=== PATIENT | female | born 1980 | race Caucasian/White ===

== ENCOUNTER 2019-05-22 20:04 | Inpatient (IN) | payer OTHER ==
[~2019-05-22] VITALS: Ht 165.1 cm; Wt 147.3 kg
[2019-05-22] MEDS ORDERED: OMEP40CA97 PO (20:22)
[2019-05-22] MEDS ORDERED: ARIP1TAB4 PO (20:22)
[2019-05-22 20:57] LABS: HEMATOCRIT 40.7 % (36.0-47.0); HEMOGLOBIN 12.3 g/dl (12.0-15.5); MEAN CORPUSCULAR HEMOGLOBIN 23.4 pg (27.0-33.0); MEAN CORPUSCULAR HGB CONC 30.2 g/dl (32.0-36.5); MEAN CORPUSCULAR VOLUME 77.5 fl (80.0-96.0); PLATELET COUNT, AUTOMATED 312 10^3/uL (150-450); RED BLOOD COUNT 5.25 10^6/uL (4.00-5.40); WHITE BLOOD COUNT 10.8 10^3/uL (4.0-10.0)
[2019-05-22 21:18] LABS: HCG, SERUM QUALITATIVE NEGATIVE (NEGATIVE)
[2019-05-22 21:21] LABS: AMPHETAMINES LEVEL URINE NEGATIVE (NEGATIVE); BARBITURATES URINE NEGATIVE (NEGATIVE); BENZODIAZEPINES URINE NEGATIVE (NEGATIVE); CANNABINOIDS URINE NEGATIVE (NEGATIVE); COCAINE METABOLITE URINE NEGATIVE (NEGATIVE); METHADONE URINE NEGATIVE (NEGATIVE); OPIATES URINE NEGATIVE (NEGATIVE); PHENCYCLIDINE URINE NEGATIVE (NEGATIVE)
[2019-05-22 21:30] LABS: ACETAMINOPHEN LEVEL < 2.0 UG/ML (10.0-30.0); ALBUMIN 3.7 GM/DL (3.2-5.2); ALT/SGPT 19 U/L (12-78); BILIRUBIN,DIRECT 0.2 MG/DL (0.0-0.2); BILIRUBIN,TOTAL 0.6 MG/DL (0.2-1.0); BLOOD UREA NITROGEN 10 MG/DL (7-18); CALCIUM LEVEL 8.9 MG/DL (8.5-10.1); CARBON DIOXIDE LEVEL 27 MEQ/L (21-32); CHLORIDE LEVEL 104 MEQ/L (98-107); CREATININE FOR GFR 0.78 MG/DL (0.55-1.30); ETHYL ALCOHOL (ETHANOL) < 0.003 % (0.000-0.010); GLOMERULAR FILTRATION RATE > 60.0 (>60); GLUCOSE, FASTING 108 MG/DL (70-100); POTASSIUM SERUM 3.9 MEQ/L (3.5-5.1); SALICYLATE LEVEL < 1.7 MG/DL (5.0-30.0); SODIUM LEVEL 137 MEQ/L (136-145)
[2019-05-22] MEDS ORDERED: MOM 30ML SUSPENSION UDC PO PRN (22:45)
[2019-05-22] MEDS ORDERED: MAALOX 30 ML SUSP *UDC PO PRN (22:45)
[2019-05-22] MEDS ORDERED: traZODone 50 MG TAB PO PRN (22:45)
[2019-05-22] MEDS ORDERED: ACETAMINOPHEN TAB 650MG DOSE (2X325MG) PO PRN (22:45)
[2019-05-22] MEDS ORDERED: ROPI1TAB3 PO (23:06)
[2019-05-23] MEDS: rOPINIRole 2MG TAB PO SCH ×2 (01:20→08:48)
[2019-05-23] MEDS: OMEPRAZOLE 20 MG CAP PO SCH ×2 (01:20→08:48)
[2019-05-23 01:43] VITALS: BP 128/75
[2019-05-23 05:59] VITALS: BP 129/87
[2019-05-23] MEDS: INFLUENZA QUADRIVALENT PF VACCINE 0.5ML SYRINGE (90686) IM ONE ×2 (08:49→08:54)
[2019-05-23 10:52] VITALS: BP 138/65
--- NOTE | 2019-05-23 11:21 | HPEPDOC ---
General Date of Admission May 22, 2019 at 22:34 Date of Service: May 23, 2019 Chief Complaint The patient is a 38-year-old female admitted with a reason for visit of MHE. Source: Patient Exam Limitations: No limitations History of Present Illness 38 year old female PMHx GERD, DM (diet controlled), restless leg syndrome admitted to mental unit. Denies fever/chills, N/V/D, chest pain/pressure, abdominal pain, urinary complaints. Home Medications Scheduled Omeprazole (Omeprazole) 40 Mg Capsule.dr, 40 MG PO BID, (Reported) Ropinirole HCl (Ropinirole HCl) 1 Mg Tablet, 2 MG PO BID, (Reported) Allergies Coded Allergies: tobramycin (Unverified Allergy, Unknown, 05/22/19) oxycodone (Verified Adverse Reaction, Mild, shakes, 05/22/19) Past Medical History Medical History GERD, obesity, DM, restless leg syndrome Surgical History as above A-FIB/CHADSVASC A-FIB History Current/History of A-Fib/PAF?: No Review of Systems Constitutional: Denies: Chills, Fever, Night Sweats Eyes: Denies: Pain, Vision change ENT: Denies: Head Aches, Ear Pain, Dysphagia Skin: Denies: Rash, Lesions, Breakdown Pulmonary: Denies: Dyspnea, Cough Cardiovascular: Denies: Chest Pain, Palpitations, Orthopnea, Paroxysmal Noc. Dyspnea, Lt Headedness Gastrointestinal: Denies: Nausea, Vomiting, Abdominal Pain, Diarrhea Genitourinary: Denies: Dysuria, Frequency, Incontinence, Retention Hematologic: Denies: Bruising, Bleeding Excessively Musculoskeletal: Denies: Neck Pain, Back Pain, Joint Pain, Muscle Pain, Spasms Neurological: Denies: Weakness, Numbness, Change in speech, Confusion Psych: Reports: Mood Normal; Denies: Depression, Memory Issues Physical Examination General Exam: Positive: Alert, No Acute Distress Eye Exam: Positive: PERRLA, Conjunctiva & lids normal, EOMI; Negative: Sclera icteric ENT Exam: Positive: Atraumatic, Mucous membr. moist/pink, Pharynx Normal Neck Exam: Positive: Supple; Negative: JVD, thyromegaly Chest Exam: Positive: Clear to auscultation, Normal air movement Heart Exam: Positive: Rate Normal, Regular Rhythm, Normal S1, Normal S2; Negative: Murmurs, Rubs Telemetry: Positive: No significant arrhythmia Abdomen Exam: Positive: Normal bowel sounds, Soft; Negative: Tenderness, Hepatospenomegaly Extremity Exam: Positive: Normal pulses; Negative: Clubbing, Cyanosis, Edema Skin Exam: Positive: Nl turgor and temperature; Negative: Breakdown, Lesion Neuro Exam: Positive: Normal Gait, Normal Speech, Cranial Nerves 3-12 NL, Reflexes 2+ Psych Exam: Positive: Mental status NL, Mood NL, Oriented x 3 Vital Signs Vital Signs Date Time Temp Pulse Resp B/P (MAP) Pulse Ox O2 Delivery O2 Flow Rate FiO2 05/23/19 10:52 98.2 71 14 138/65 (89) 96 Room Air Laboratory Data Labs 24H Laboratory Tests 2 05/22/19 20:20: Nucleated Red Blood Cells % (auto) 0.0, Anion Gap 6L, Glomerular Filtration Rate > 60.0, Calcium Level 8.9, Total Bilirubin 0.6, Direct Bilirubin 0.2, Aspartate Amino Transf (AST/SGOT) 11, Alanine Aminotransferase (ALT/SGPT) 19, Alkaline Phosphatase 69, Total Protein 8.0, Albumin 3.7, Albumin/Globulin Ratio 0.86L, Thyroid Stimulating Hormone (TSH) 1.630, Human Chorionic Gonadotropin, Qual NEGATIVE, Salicylates Level < 1.7L, Acetaminophen Level < 2.0L, Ethyl Alcohol Level < 0.003 05/22/19 20:23: Urine Opiates Screen NEGATIVE, Urine Methadone Screen NEGATIVE, Urine Barbiturates Screen NEGATIVE, Urine Phencyclidine Screen NEGATIVE, Urine Amphetamines Screen NEGATIVE, Urine Benzodiazepines Screen NEGATIVE, Urine Cocaine Metabolite Screen NEGATIVE, Urine Cannabinoids Screen NEGATIVE CBC/BMP Laboratory Tests 05/22/19 20:20 Assessment/Plan 1. DM - diet controlled, monitor. 2. GERD - continue omeprazole. 3. restless leg syndrome - continue requip. 4. ?suicide attempt - management as per psychiatry. Plan / VTE VTE Prophylaxis Ordered?: MIRZA Soto MD May 23, 2019 11:21
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
--- NOTE | 2019-05-23 12:02 | MHDSPDOC ---
[facility] Discharge Summary Discharge Summary DATE OF ADMISSION: May 22, 2019 at 22:34 DATE OF DISCHARGE: 05/23/19 please see h/p for same day d/c Vital Signs/I&Os Vital Signs Date Time Temp Pulse Resp B/P (MAP) Pulse Ox O2 Delivery O2 Flow Rate FiO2 05/23/19 10:52 98.2 71 14 138/65 (89) 96 Room Air Laboratory Data Labs 24H Laboratory Tests 2 05/22/19 20:20: Nucleated Red Blood Cells % (auto) 0.0, Anion Gap 6L, Glomerular Filtration Rate > 60.0, Calcium Level 8.9, Total Bilirubin 0.6, Direct Bilirubin 0.2, Aspartate Amino Transf (AST/SGOT) 11, Alanine Aminotransferase (ALT/SGPT) 19, Alkaline Phosphatase 69, Total Protein 8.0, Albumin 3.7, Albumin/Globulin Ratio 0.86L, Thyroid Stimulating Hormone (TSH) 1.630, Human Chorionic Gonadotropin, Qual NEGATIVE, Salicylates Level < 1.7L, Acetaminophen Level < 2.0L, Ethyl Alcohol Level < 0.003 05/22/19 20:23: Urine Opiates Screen NEGATIVE, Urine Methadone Screen NEGATIVE, Urine Barbitu rates Screen NEGATIVE, Urine Phencyclidine Screen NEGATIVE, Urine Amphetamines Screen NEGATIVE, Urine Benzodiazepines Screen NEGATIVE, Urine Cocaine Metabolite Screen NEGATIVE, Urine Cannabinoids Screen NEGATIVE CBC/BMP Laboratory Tests 05/22/19 20:20 Medications Scheduled Omeprazole (Omeprazole) 40 Mg Capsule.dr, 40 MG PO BID, (Reported) Ropinirole HCl (Ropinirole HCl) 1 Mg Tablet, 2 MG PO BID, (Reported) Allergies Coded Allergies: tobramycin (Unverified Allergy, Unknown, 05/22/19) oxycodone (Verified Adverse Reaction, Mild, shakes, 05/22/19) ROXI MICHAEL DO May 23, 2019 12:02
== END 2019-05-23 15:30 | disposition home or self-care (01) | DRG 881 ==
LOC: M ED 20:04 → M ED INP 22:34 → M PSY 05-23
PROVIDERS: ADMIT Psychiatry & Neurology Psychiatry; ATTEND Psychiatry & Neurology Psychiatry
DX: F32.9 Major depressive disorder, single episode, unspecified (principal); F43.20 Adjustment disorder, unspecified; Z63.0 Problems in relationship with spouse or partner; K21.9 Gastro-esophageal reflux disease without esophagitis; E11.9 Type 2 diabetes mellitus without complications; G25.81 Restless legs syndrome; Z88.5 Allergy status to narcotic agent; Z88.1 Allergy status to other antibiotic agents

== ENCOUNTER → 2019-10-01 | Outpatient (REF) | payer OTHER ==
[~2019-10-01] MED LIST: ARIP1TAB4 PO; OMEP40CA97 PO; ROPI1TAB3 PO
== END ==
LOC: M SFHCLUC 08:05
PROVIDERS: ATTEND Physician Assistant
DX: J02.9 Acute pharyngitis, unspecified (principal)

== ENCOUNTER → 2020-02-27 | Outpatient (CLI) | payer SELFPAY | LOC: M LABSMTC 10:15 | PROVIDERS: ATTEND Pediatrics | DX: Z20.822 Contact with and (suspected) exposure to COVID-19 (principal) ==

== ENCOUNTER → 2020-12-09 | Outpatient (REF) | payer OTHER ==
[~2020-12-09] MED LIST changes: +OMEP40CA4 PO; -OMEP40CA97 PO
== END ==
LOC: M LAB REF 12:14
PROVIDERS: ATTEND Physician Assistant Medical
DX: R50.9 Fever, unspecified (principal); R05.9 Cough, unspecified

== ENCOUNTER → 2020-12-09 | Outpatient (CLI) | payer OTHER ==
--- NOTE | 2020-12-09 12:46 | REP ---
INDICATION: F/U PNEUMONIA, CONTINUED SOB COMPARISON: 03/24/2009. TECHNIQUE: PA/Lateral FINDINGS: Lungs: Clear, no infiltrate. Heart: Normal in size. Mediastinum: Mediastinal silhouette unremarkable. Pleural angles: Unremarkable.. Bones and soft tissues: Unremarkable. IMPRESSION: No acute pulmonary disease. <Electronically signed by Stanley Garrett > 12/09/20 [id number]
== END ==
LOC: M RAD 12:06
PROVIDERS: ATTEND Physician Assistant Medical
DX: J18.9 Pneumonia, unspecified organism (principal); R06.02 Shortness of breath

== ENCOUNTER 2021-08-08 09:10 | Emergency (ER) | payer OTHER ==
[~2021-08-08] VITALS: Ht 165.1 cm; Wt 155.3 kg
[2021-08-08 09:12] VITALS: BP 143/85
== END 2021-08-08 11:46 | disposition home or self-care (01) ==
LOC: M ED 09:10
DX: M79.671 Pain in right foot (principal); W18.49XA Other slipping, tripping and stumbling without falling, initial encounter; Y92.62 Dock or shipyard as the place of occurrence of the external cause; Z88.5 Allergy status to narcotic agent; Z88.8 Allergy status to other drugs, medicaments and biological substances

== ENCOUNTER → 2021-12-01 | Outpatient (CLI) | payer MEDICAID, OTHER | LOC: M RAD 09:13 | PROVIDERS: ATTEND Physician Assistant | DX: S90.31XD Contusion of right foot, subsequent encounter (principal); W18.30XD Fall on same level, unspecified, subsequent encounter | CPT/HCPCS: 78315; A9503 ==

== ENCOUNTER → 2022-08-16 | Outpatient (CLI) | payer MEDICAID ==
[2022-08-16 19:17] LABS: BASO # 0.1 10^3/uL (0.0-0.2); BASO % 0.6 % (0.0-1.0); EOS # 0.4 10^3/uL (0.0-0.5); EOS % 3.6 % (0.0-3.0); HEMATOCRIT 38.7 % (36.0-47.0); HEMOGLOBIN 12.3 g/dl (12.0-15.5); LYMPH # 2.4 10^3/uL (1.5-5.0); LYMPH % 21.9 % (24.0-44.0); MEAN CORPUSCULAR HEMOGLOBIN 26.9 pg (27.0-33.0); MEAN CORPUSCULAR HGB CONC 31.8 g/dl (32.0-36.5); MEAN CORPUSCULAR VOLUME 84.5 fl (80.0-96.0); MONO # 0.6 10^3/uL (0.0-0.8); MONO % 5.5 % (2.0-8.0); NEUTROPHILS # 7.4 10^3/uL (1.5-8.5); NEUTROPHILS % 67.9 % (36.0-66.0); PLATELET COUNT, AUTOMATED 311 10^3/uL (150-450); RED BLOOD COUNT 4.58 10^6/uL (4.00-5.40); WHITE BLOOD COUNT 10.9 10^3/uL (4.0-10.0)
[2022-08-16 19:22] LABS: ALBUMIN 3.3 G/DL (3.2-5.2); ALKALINE PHOSPHATASE 60 U/L (46-116); ALT/SGPT 21 U/L (7.0-40); AST/SGOT < 8 U/L (<34); BILIRUBIN,TOTAL 0.3 MG/DL (0.3-1.2); BLOOD UREA NITROGEN 11 MG/DL (9-23); CALCIUM LEVEL 8.9 MG/DL (8.5-10.1); CARBON DIOXIDE LEVEL 24 MMOL/L (20-31); CHLORIDE LEVEL 104 MMOL/L (98-107); CREATININE FOR GFR 0.81 MG/DL (0.55-1.30); GLOMERULAR FILTRATION RATE > 60.0 (>60); GLUCOSE, FASTING 106 MG/DL (60-100); PHOSPHORUS LEVEL 3.9 MG/DL (2.5-4.9); POTASSIUM SERUM 4.4 MMOL/L (3.5-5.1); SODIUM LEVEL 134 MMOL/L (136-145); THYROID STIMULATING HORMONE 1.378 uIU/ML (0.55-4.78); TOTAL PROTEIN 6.6 G/DL (5.7-8.2)
[2022-08-16 19:30] LABS: HEMOGLOBIN A1c 5.6 % (4.0-6.0)
== END ==
LOC: M WUC 13:43
PROVIDERS: ATTEND Registered Nurse Psychiatric/Mental Health
DX: F43.25 Adjustment disorder with mixed disturbance of emotions and conduct (principal); Z79.899 Other long term (current) drug therapy

== ENCOUNTER → 2022-10-05 | Outpatient (CLI) | payer OTHER ==
[~2022-10-05] MED LIST changes: -ROPI1TAB3 PO; +ROPI1TAB73 PO
== END ==
LOC: M WUC 14:18
PROVIDERS: ATTEND Nurse Practitioner Family
DX: M25.522 Pain in left elbow (principal)

== ENCOUNTER → 2022-10-05 | Outpatient (CLI) | payer OTHER ==
[2022-10-05 17:44] LABS: HEMOGLOBIN A1c 5.6 % (4.0-6.0)
[2022-10-05 18:00] LABS: IRON (FE) 36 UG/DL (50-170); PERCENT SATURATION 11.1 % (13.2-45.0); TOTAL IRON BINDING CAPACITY 325 UG/DL (250-425)
[2022-10-05 18:02] LABS: FERRITIN 16.7 NG/ML (7.3-270.7); FOLATE 9.36 NG/ML (>5.4); RHEUMATOID FACTOR QUANT < 3.5 IU/ML (<14)
[2022-10-05 18:03] LABS: VITAMIN B12 LEVEL 195 PG/ML (211-911)
== END ==
LOC: M WUC 14:21
PROVIDERS: ATTEND Psychiatry & Neurology Neurology
DX: E53.8 Deficiency of other specified B group vitamins (principal); E11.40 Type 2 diabetes mellitus with diabetic neuropathy, unspecified; G25.81 Restless legs syndrome; E03.9 Hypothyroidism, unspecified; D50.9 Iron deficiency anemia, unspecified

== ENCOUNTER → 2023-01-02 | Outpatient (REF) | payer OTHER | LOC: M LAB REF 18:08 | PROVIDERS: ATTEND Physician Assistant Medical | DX: B34.9 Viral infection, unspecified (principal) ==

== ENCOUNTER → 2023-02-04 | Outpatient (CLI) | payer OTHER | LOC: M WUC 11:59 | PROVIDERS: ATTEND Physician Assistant | DX: S80.02XA Contusion of left knee, initial encounter (principal); W10.1XXA Fall (on)(from) sidewalk curb, initial encounter; Y93.9 Activity, unspecified; Y92.9 Unspecified place or not applicable ==

== ENCOUNTER 2023-05-25 17:43 | Emergency (ER) | payer OTHER ==
[~2023-05-25] VITALS: Ht 165.1 cm; Wt 145.2 kg
[2023-05-25] MEDS ORDERED: TOPI-21 (17:55)
[2023-05-25] MEDS ORDERED: [UNRECOGNIZED DRUG - CODE] PO (17:55)
[2023-05-25] MEDS ORDERED: LAMO150T3 (17:55)
[2023-05-25] MEDS ORDERED: VENL150C43 (17:55)
[2023-05-25] MEDS ORDERED: TRAZ-252 (17:55)
[2023-05-25 19:11] LABS: BASO # 0.1 10^3/uL (0.0-0.2); BASO % 0.7 % (0.0-1.0); EOS # 0.2 10^3/uL (0.0-0.5); EOS % 1.5 % (0.0-3.0); HEMATOCRIT 41.3 % (36.0-47.0); HEMOGLOBIN 13.7 g/dl (12.0-15.5); LYMPH # 2.6 10^3/uL (1.5-5.0); MEAN CORPUSCULAR HEMOGLOBIN 26.4 pg (27.0-33.0); MEAN CORPUSCULAR HGB CONC 33.2 g/dl (32.0-36.5); MEAN CORPUSCULAR VOLUME 79.7 fl (80.0-96.0); MONO # 0.8 10^3/uL (0.0-0.8); MONO % 6.9 % (2.0-8.0); NEUTROPHILS # 7.2 10^3/uL (1.5-8.5); NEUTROPHILS % 66.4 % (36.0-66.0); PLATELET COUNT, AUTOMATED 316 10^3/uL (150-450); RED BLOOD COUNT 5.18 10^6/uL (4.00-5.40); WHITE BLOOD COUNT 10.8 10^3/uL (4.0-10.0)
[2023-05-25 19:31] LABS: HCG, SERUM QUALITATIVE NEGATIVE (NEGATIVE)
[2023-05-25 19:32] LABS: LIPASE 28 U/L (12-53)
[2023-05-25 19:34] LABS: ALBUMIN 3.7 G/DL (3.2-5.2); ALKALINE PHOSPHATASE 72 U/L (46-116); ALT/SGPT < 9 U/L (7.0-40); AST/SGOT 13 U/L (<34); BILIRUBIN,DIRECT 0.3 MG/DL (<0.4); BILIRUBIN,TOTAL 0.7 MG/DL (0.3-1.2); BLOOD UREA NITROGEN 10 MG/DL (9-23); CALCIUM LEVEL 9.3 MG/DL (8.5-10.1); CARBON DIOXIDE LEVEL 21 MMOL/L (20-31); CHLORIDE LEVEL 108 MMOL/L (98-107); CREATININE FOR GFR 0.84 MG/DL (0.55-1.30); GLOMERULAR FILTRATION RATE > 60.0 (>58); GLUCOSE, FASTING 137 MG/DL (60-100); POTASSIUM SERUM 4.1 MMOL/L (3.5-5.1); SODIUM LEVEL 136 MMOL/L (136-145); TOTAL PROTEIN 7.5 G/DL (5.7-8.2)
[2023-05-25 22:17] VITALS: TEMP 98.2
[2023-05-26] MEDS ORDERED: ISOVUE-370 76% 100ML VIAL As Ordered ONE (00:42)
[2023-05-26] MEDS: LORazepam 2 MG/ML 1ML VIAL IV STA (01:07)
[2023-05-26] MEDS: ONDANSETRON 4MG 2ML VIAL IV ONE (01:07)
[2023-05-26] MEDS: KETOROLAC 30 MG/ML 1ML VIAL IV ONE (01:07)
[2023-05-26 01:13] VITALS: O2SAT 95
[2023-05-26 04:03] VITALS: BP 133/79
== END 2023-05-26 04:05 | disposition home or self-care (01) ==
LOC: M ED 17:43
DX: N83.292 Other ovarian cyst, left side (principal); K21.9 Gastro-esophageal reflux disease without esophagitis; E66.9 Obesity, unspecified; F32.A Depression, unspecified; F12.10 Cannabis abuse, uncomplicated; D25.9 Leiomyoma of uterus, unspecified; G25.81 Restless legs syndrome; Z88.1 Allergy status to other antibiotic agents; Z88.5 Allergy status to narcotic agent; Z79.83 Long term (current) use of bisphosphonates; Z79.899 Other long term (current) drug therapy
CPT/HCPCS: 74177; 76830; 76856; 80048; 80076; 83690; 84703; 85025; 93976; 96374; 99284; J1885; J2060; J2405; Q9967

== ENCOUNTER → 2024-03-05 | Outpatient (CLI) | payer OTHER ==
[~2024-03-05] MED LIST changes: +LAMO150T3; +TOPI-21; +TRAZ-252; +VENL150C43; +[UNRECOGNIZED DRUG - CODE] PO
== END ==
LOC: M WUC 14:46
PROVIDERS: ATTEND Student in an Organized Health Care Education/Training Program
DX: J45.901 Unspecified asthma with (acute) exacerbation (principal)

== ENCOUNTER → 2024-03-21 | Outpatient (REF) | payer OTHER ==
[2024-03-21 14:59] LABS: BASO # 0.1 10^3/uL (0.0-0.2); BASO % 0.4 % (0.0-1.0); EOS # 0.3 10^3/uL (0.0-0.5); EOS % 2.7 % (0.0-3.0); HEMATOCRIT 38.8 % (36.0-47.0); HEMOGLOBIN 12.5 g/dl (12.0-15.5); LYMPH # 2.8 10^3/uL (1.5-5.0); LYMPH % 24.9 % (24.0-44.0); MEAN CORPUSCULAR HEMOGLOBIN 26.9 pg (27.0-33.0); MEAN CORPUSCULAR HGB CONC 32.2 g/dl (32.0-36.5); MEAN CORPUSCULAR VOLUME 83.4 fl (80.0-96.0); MONO # 0.7 10^3/uL (0.0-0.8); MONO % 5.8 % (2.0-8.0); NEUTROPHILS # 7.4 10^3/uL (1.5-8.5); NEUTROPHILS % 65.6 % (36.0-66.0); PLATELET COUNT, AUTOMATED 250 10^3/uL (150-450); RED BLOOD COUNT 4.65 10^6/uL (4.00-5.40); WHITE BLOOD COUNT 11.3 10^3/uL (4.0-10.0)
[2024-03-21 15:38] LABS: ALBUMIN 2.8 G/DL (3.2-5.2); ALKALINE PHOSPHATASE 46 U/L (35-104); ALT/SGPT 11 U/L (7.0-40); AST/SGOT < 8 U/L (<34); BILIRUBIN,TOTAL 0.4 MG/DL (0.3-1.2); BLOOD UREA NITROGEN 11 MG/DL (9-23); CALCIUM LEVEL 8.4 MG/DL (8.5-10.1); CARBON DIOXIDE LEVEL 31 MMOL/L (20-31); CHLORIDE LEVEL 100 MMOL/L (98-107); CHOLESTEROL LEVEL 175 MG/DL (<200); CREATININE FOR GFR 0.66 MG/DL (0.55-1.30); GLOMERULAR FILTRATION RATE > 60.0 (>58); GLUCOSE, FASTING 106 MG/DL (60-100); HDL CHOLESTEROL 60.3 MG/DL (>40); LDL CHOLESTEROL 84.5 MG/DL (<100); NON-HDL-C 114.7 MG/DL; POTASSIUM SERUM 4.7 MMOL/L (3.5-5.1); SODIUM LEVEL 141 MMOL/L (136-145); TOTAL PROTEIN 6.2 G/DL (5.7-8.2); TRIGLYCERIDES LEVEL 151 MG/DL (<150)
[2024-03-21 15:59] LABS: HEMOGLOBIN A1c 5.7 % (4.0-6.0)
== END ==
LOC: M LAB REF 13:08
PROVIDERS: ATTEND Nurse Practitioner Family
DX: E66.3 Overweight (principal); Z11.9 Encounter for screening for infectious and parasitic diseases, unspecified

== ENCOUNTER 2024-06-08 10:55 | Day surgery (SDC) | payer OTHER ==
[~2024-06-08] VITALS: Ht 165.1 cm; Wt 150.6 kg
[~2024-06-08 10:55] MED LIST changes: +ALBU10.7; +ALBU8.5H; -LAMO150T3; +LAMO150T3 PO; +LORA-1041 PO; +OMEP40CA5 PO; +ROPI4TAB21 PO; -TOPI-21; +TOPI-21 PO; -TRAZ-252; +TRAZ-252 PO; +TREL1AER; -VENL150C43; +VENL150C43 PO
[2024-06-08 12:10] VITALS: TEMP 97.4
[2024-06-08] MEDS ORDERED: GLYCOPYRROLATE INJ 0.2 MG/ML 2 ML VIAL As Ordered ONE (12:16)
[2024-06-08] MEDS ORDERED: LIDOCAINE 2% 100MG/5ML SDV (FOR ANES.) As Ordered ONE (12:16)
[2024-06-08] MEDS ORDERED: propofoL 200 MG/20 ML VIAL As Ordered ONE (12:16)
[2024-06-08 12:25] VITALS: BP 128/83; O2SAT 97
== END 2024-06-08 12:43 | disposition home or self-care (01) ==
LOC: M OPP 10:55
PROVIDERS: ATTEND Surgery
DX: K44.9 Diaphragmatic hernia without obstruction or gangrene (principal); K22.89 Other specified disease of esophagus; G47.30 Sleep apnea, unspecified; Z88.1 Allergy status to other antibiotic agents; Z88.5 Allergy status to narcotic agent; Z91.048 Other nonmedicinal substance allergy status; Z79.51 Long term (current) use of inhaled steroids; Z79.899 Other long term (current) drug therapy; J44.9 Chronic obstructive pulmonary disease, unspecified
CPT/HCPCS: 43239; 88305; J1596

== ENCOUNTER 2024-07-02 13:50 | Emergency (ER) | payer OTHER ==
[~2024-07-02] VITALS: Ht 165.1 cm; Wt 145.9 kg
[2024-07-02 13:52] VITALS: TEMP 98.1
[2024-07-02] MEDS ORDERED: SYMB16INH (13:57)
[2024-07-02 14:54] LABS: HEMOGLOBIN 12.5 g/dl (12.0-15.5); RED BLOOD COUNT 4.64 10^6/uL (4.00-5.40); WHITE BLOOD COUNT 9.6 10^3/uL (4.0-10.0)
[2024-07-02 14:55] LABS: BASO # 0.1 10^3/uL (0.0-0.2); BASO % 0.5 % (0.0-1.0); EOS # 0.2 10^3/uL (0.0-0.5); EOS % 1.7 % (0.0-3.0); LYMPH # 1.7 10^3/uL (1.5-5.0); LYMPH % 17.2 % (24.0-44.0); MEAN CORPUSCULAR HEMOGLOBIN 26.9 pg (27.0-33.0); MEAN CORPUSCULAR HGB CONC 32.9 g/dl (32.0-36.5); MEAN CORPUSCULAR VOLUME 81.9 fl (80.0-96.0); MONO # 0.6 10^3/uL (0.0-0.8); MONO % 6.2 % (2.0-8.0); NEUTROPHILS # 7.1 10^3/uL (1.5-8.5); PLATELET COUNT, AUTOMATED 275 10^3/uL (150-450)
[2024-07-02 15:13] LABS: CK-MB VALUE MASS < 1.0 NG/ML (<3.6)
[2024-07-02 15:15] LABS: BLOOD UREA NITROGEN 8 MG/DL (9-23); CALCIUM LEVEL 8.8 MG/DL (8.5-10.1); CARBON DIOXIDE LEVEL 26 MMOL/L (20-31); CHLORIDE LEVEL 108 MMOL/L (98-107); CPK CREATINE PHOSPHOKINASE 77 U/L (34-145); CREATININE FOR GFR 0.66 MG/DL (0.55-1.30); GLOMERULAR FILTRATION RATE > 90.0 (>58); GLUCOSE, FASTING 114 MG/DL (60-100); MB/CK RELATIVE INDEX 1.29 (< OR =4); POTASSIUM SERUM 4.1 MMOL/L (3.5-5.1); SODIUM LEVEL 141 MMOL/L (136-145)
[2024-07-02 16:16] LABS: CK-MB VALUE MASS < 1.0 NG/ML (<3.6)
[2024-07-02 16:20] LABS: CPK CREATINE PHOSPHOKINASE 70 U/L (34-145); MB/CK RELATIVE INDEX 1.42 (< OR =4)
[2024-07-02 16:50] VITALS: O2SAT 95
[2024-07-02 17:11] VITALS: BP 151/68
== END 2024-07-02 17:19 | disposition home or self-care (01) ==
LOC: M ED 13:50
DX: R07.89 Other chest pain (principal); E78.5 Hyperlipidemia, unspecified; K21.9 Gastro-esophageal reflux disease without esophagitis; J45.909 Unspecified asthma, uncomplicated; Z88.1 Allergy status to other antibiotic agents; Z88.5 Allergy status to narcotic agent; Z91.048 Other nonmedicinal substance allergy status; Z79.51 Long term (current) use of inhaled steroids; Z79.899 Other long term (current) drug therapy

== ENCOUNTER → 2024-11-16 | Outpatient (REF) | payer OTHER ==
[~2024-11-16] MED LIST changes: +SYMB16INH
== END ==
LOC: M LAB REF 16:36
PROVIDERS: ATTEND Physician Assistant
DX: B34.9 Viral infection, unspecified (principal)

== ENCOUNTER → 2025-01-11 | Outpatient (REF) | payer OTHER ==
[2025-01-11 17:02] LABS: MAGNESIUM LEVEL 1.7 MG/DL (1.8-2.4)
[2025-01-11 17:03] LABS: IRON (FE) 28.0 UG/DL (50-170)
[2025-01-11 17:04] LABS: PERCENT SATURATION 8.4 % (13.2-45.0)
[2025-01-11 17:06] LABS: VITAMIN B12 LEVEL 222.0 PG/ML (211-911)
[2025-01-11 17:07] LABS: BASO # 0.1 10^3/uL (0.0-0.2); BASO % 0.7 % (0.0-1.0); EOS # 0.3 10^3/uL (0.0-0.5); EOS % 3.9 % (0.0-3.0); LYMPH # 1.7 10^3/uL (1.5-5.0); LYMPH % 19.7 % (24.0-44.0); MONO # 0.4 10^3/uL (0.0-0.8); MONO % 5.0 % (2.0-8.0); NEUTROPHILS # 6.0 10^3/uL (1.5-8.5); NEUTROPHILS % 70.3 % (36.0-66.0); PLATELET COUNT, AUTOMATED 300 10^3/uL (150-450)
== END ==
LOC: M LAB REF 16:24
PROVIDERS: ATTEND Nurse Practitioner Family
DX: G25.81 Restless legs syndrome (principal)